=== PATIENT | female | born 1970 | race Caucasian/White ===

== ENCOUNTER 2020-01-04 06:38 | Day surgery (SDC) | payer BC ==
--- NOTE | 2020-01-01 10:24 | HP ---
DATE OF SURGERY: 01/04/2020 ANTICIPATED PROCEDURE: EGD. HISTORY OF PRESENT ILLNESS: The patient has epigastric pain, vomiting and burning. She also had gastric band of some sort. She has polycystic ovary disease. She incidentally had a cyst on the left breast not demonstrated on ultrasound in the office. PAST MEDICAL HISTORY: ALLERGIES: KEFLEX. MEDICATIONS: Glipizide, Metformin, Wellbutrin, Pepcid, Prozac, Colace, Biotin. PAST SURGICAL HISTORY: Hysterectomy. section. Gastric band. Removal of precancerous spot on back. SOCIAL HISTORY: Positive. FAMILY HISTORY: Negative. REVIEW OF SYSTEMS: Diabetes. PHYSICAL EXAMINATION: VITAL SIGNS: Normal. CHEST: Clear. COR: Regular. ABDOMEN: Satisfactory. PLAN: EGD.
[2020-01-04] MEDS ORDERED: Lactated Ringers 1,000 ML IV SCH (07:30)
[2020-01-04] MEDS ORDERED: DIPRIVAN 200 MG/20 ML IV ONE (09:17)
--- NOTE | 2020-01-04 10:21 | OP ---
SURGERY DATE/TIME: 01/04/202022 PREOPERATIVE DIAGNOSIS: Epigastric pain. The patient had a previous gastric band. POSTOPERATIVE DIAGNOSIS: Grade II/III gastroesophageal reflux disease. No hiatal hernia. It is unclear what the gastric band is doing. It looked like it was wadding up the outside greater curvature of the stomach but the stomach was quite patent. PROCEDURE: EGD. SURGEON: Barry Freire M.D. ANESTHESIA: MAC. COMPLICATIONS: None. CONDITION: Stable. INDICATION: The patient has had gastric band. She has upper abdominal pain. DESCRIPTION OF PROCEDURE: Taken to endoscopy. Left lateral decubitus position. MAC sedation. Scope introduced. Pharyngoesophageal junction normal. Esophagus normal down to esophagogastric junction. Grade II/III gastroesophageal reflux disease. No hiatal hernia. I believe the band was pinching the greater curvature of the stomach. The scope went down the lesser curve through the pylorus into the duodenum and seemed to be satisfactory. Scope withdrawn. I did not see anything that required any immediate surgical intervention but there is certainly deformity up in the fundus from this band. Scope withdrawn looped upon itself. No hiatal hernia. The patient tolerated the procedure satisfactorily.
[2020-01-04 10:28] VITALS: PULSE 82
[2020-01-04 10:54] VITALS: BP 140/83; O2SAT 95
== END 2020-01-04 10:25 | disposition home or self-care (01) ==
LOC: SDC 06:38
PROVIDERS: ATTEND Surgery
DX: K21.9 Gastro-esophageal reflux disease without esophagitis (principal); E11.9 Type 2 diabetes mellitus without complications; Z79.899 Other long term (current) drug therapy
CPT/HCPCS: J2704

== ENCOUNTER 2020-02-29 05:46 | Day surgery (SDC) | payer BC ==
--- NOTE | 2020-02-23 09:18 | HP ---
DATE OF SURGERY: 02/29/2020 HISTORY OF PRESENT ILLNESS: The patient presents to the office with complaints of nausea, vomiting and upper abdominal pain. She had a gastric band in the past. We did an EGD on the patient and found that she had grade II reflux, no hiatal hernia. It was unclear what her gastric band would do during the procedure. It looked like it was wadded up outside the greater curvature of the stomach. The stomach did appear patent. The patient also complains of having history of polycystic ovary syndrome (PCOS). Desires to have completion oophorectomy. She has had a hysterectomy in the past. PAST MEDICAL HISTORY: Diabetes. Depression. Reflux. PAST SURGICAL HISTORY: Hysterectomy. section. Gastric band. ALLERGIES: KEFLEX. IRON. LATEX. MEDICATIONS: Glipizide. Metformin. Wellbutrin. Pepcid. Prozac. Colace. Biotin. Hydrochlorothiazide. FAMILY HISTORY: Heart disease. Diabetes. Cancer. Hypertension. SOCIAL HISTORY: Smokes one and a half packs of cigarettes a day. Denies alcohol. REVIEW OF SYSTEMS: CONSTITUTIONAL: Denies fever or chills. CHEST: Denies shortness of breath. CVS: Denies chest pain. ABDOMEN: Reports upper abdominal pain, nausea and vomiting. Denies diarrhea, constipation or rectal bleeding. : Denies dysuria or hematuria. PHYSICAL EXAMINATION: GENERAL: No acute distress. CHEST: Nonlabored. No shortness of breath. CVS: Regular rate and rhythm. ABDOMEN: Soft, nontender to palpation. EXTREMITIES: No edema. NEUROLOGIC: Alert. PSYCHIATRIC: Appropriate. IMPRESSION: Dysfunctional gastric band, undesired gastric band. Undesired ovary. PLAN: Laparoscopy completion oophorectomy and possible removal of gastric band. As dictated by Janina Alvarez NP.
[2020-02-29] MEDS ORDERED: Lactated Ringers 1,000 ML IV SCH (07:00)
[2020-02-29] MEDS ORDERED: DIPRIVAN 200 MG/20 ML IV ONE (07:41)
[2020-02-29] MEDS ORDERED: BRIDION 200MG/2ML IV ONE (07:41)
[2020-02-29] MEDS ORDERED: Zofran 4 MG/2 ML VIAL ONE (07:41)
[2020-02-29] MEDS ORDERED: Zemuron 100 MG/10 ML ONE ×2 (07:41→09:19)
[2020-02-29] MEDS ORDERED: TORAdol 30 mg Injection ONE (07:41)
[2020-02-29] MEDS ORDERED: SUBLIMAZE 100 MCG/2 ML ONE ×3 (07:41→11:11)
[2020-02-29] MEDS ORDERED: Decadron 4 MG INJ ONE (07:41)
[2020-02-29] MEDS ORDERED: Xylocaine-Mpf 2% 5 Ml Vial ONE (07:41)
[2020-02-29] MEDS ORDERED: Quelicin Fliptop 200 MG/10 ML ONE (07:41)
[2020-02-29] MEDS ORDERED: Ketamine HCl 50 MG/ML ONE (07:43)
[2020-02-29] MEDS ORDERED: Sensorcaine 0.25% 10 ML ONE (07:44)
[2020-02-29] MEDS ORDERED: Lactated Ringers 1,000 ML IV ONE (07:45)
[2020-02-29] MEDS ORDERED: Ephedrine Sulfate 50 MG/ML ONE (08:50)
[2020-02-29] MEDS ORDERED: ATROPINE SULFATE 1MG ONE (08:57)
[2020-02-29] MEDS ORDERED: CLINDAMYCIN-D5W 900 MG/50 ML*** 900 MG/50 ML BAG IV ONE (09:32)
[2020-02-29] MEDS ORDERED: TRANDATE 100 MG/20 ML MDV FOR DRIP IV ONE (10:39)
[2020-02-29 12:42] VITALS: O2SAT 92
[2020-02-29 12:44] VITALS: BP 127/54; PULSE 76
--- NOTE | 2020-02-29 13:25 | OP ---
SURGERY DATE/TIME: 02/29/2020 0828 PREOPERATIVE DIAGNOSIS: Pain from ovary. POSTOPERATIVE DIAGNOSIS: Pain from ovary. PROCEDURE: Laparoscopy with completion oophorectomy possible band removal. SURGEON: Barry Freire M.D. ANESTHESIA: General. INDICATION: The patient has bilateral polycystic disease. She is not quite clear although mother thinks she had right ovary out. She has some cysts and pelvic pain both sides. She also has a cervix which we not going to do anything about and she is aware of this. She has a laparoscopic band in and this is readily accessible. We may pull this out today. DESCRIPTION OF PROCEDURE: She is taken to surgery. General anesthetic. Routine prep and drape. 5 port just above the umbilicus. There were adhesions of the pelvis with the sigmoid stuck against the anterior abdominal wall in the midline. It was also stuck against the pelvic wall to the left. The round ligament residual stump was stuck to the sigmoid colon. There was no adnexa seen on the right side despite being able to see basically the pelvic side wall on the right. I believe this is surgically absent. On the left side, there was a markedly scarred up bud of ovary that was flattened against the pelvic side wall. With care and patience it was pulled away from the pelvic side wall and was resected 360 degrees. As noted it continued to be just slightly pulled away. Very minimal bites and at this time it was amputated off the posterior aspect of the pelvic side wall. There was no suggestion of any ureter injury or vessel injury. Four inches of colon had been mobilized and there was no suggestion of any issue with the colon. The field was dry. Turning attention cephalad there were adhesions against the liver. There were adhesions of the stomach against the omentum. The tube was wrapped in the omentum at least once. Looking and feeling it seemed like it was really quite scared up where it was wrapped around the stomach. None of it was immediately visible at this location. It did not seem prudent to proceed with this at this time. We will refer her to a gastric bypass center for removal of her gastric band.
[2020-02-29 14:11] LABS: Appearance SLIGHTLY CLOUDY (CLEAR); Bilirubin NEGATIVE (NEGATIVE); Blood NEGATIVE Ery/ul (0-5); Epithelial Cells RARE /HPF (FEW); Glucose NEGATIVE (NEGATIVE); Ketones NEGATIVE (NEGATIVE); Leukocyte Esterase NEGATIVE (NEGATIVE); Mucus SLIGHT /HPF (NEGATIVE); Nitrite NEGATIVE (NEGATIVE); Protein,Urine Dip NEGATIVE (Negative); Specific Gravity 1.025 (1.005-1.025); Urobilinogen 2 mg/dL (0-1)
== END 2020-02-29 12:35 | disposition home or self-care (01) ==
LOC: SDC 05:46
PROVIDERS: ATTEND Surgery
DX: E28.2 Polycystic ovarian syndrome (principal); R11.2 Nausea with vomiting, unspecified; Z98.84 Bariatric surgery status; E11.9 Type 2 diabetes mellitus without complications; Z79.899 Other long term (current) drug therapy
CPT/HCPCS: 81001; 82962; 87086; 88305; J0330; J0461; J1100; J1885; J2405; J2704; J3010